=== PATIENT | female | born 1960 | race Caucasian/White ===

== ENCOUNTER 2024-01-24 12:05 | Inpatient (IN) | payer BC ==
--- NOTE | 2024-01-24 13:29 | ED ---
Neuro HPI - General Chief Complaint: Neuro Symptoms/Deficit Stated Complaint: Dizziness Time Seen by Provider: 01/24/24 12:10 Source: patient Mode of arrival: wheelchair Limitations: no limitations - History of Present Illness Is the patient presenting with stroke symptoms?: Yes Initial Comments: 63-year-old female with past medical history of CVA and no residual deficits who presents emergency department with strokelike symptoms. States she awoke around 5:30 AM without symptoms. She ended up going back to sleep and when she woke up at 8 AM, she had acute visual disturbance. States that she cannot see the left vision out of both eyes. Patient takes aspirin daily. Patient does not take Plavix. She denies any headache. No numbness, tingling or weakness in her extremities. No speech deficit. No facial droop. No other alleviating, precipitating or modifying factors - Related Data Home Medications: Home Medications Medication Instructions Recorded Confirmed Albuterol Sulfate [Albuterol 2 puff INHALATION RT-QID PRN 01/24/24 01/24/24 Sulfate Hfa] Clotrimazole [Clotrimazole AF] 1 applic TOPICAL BID 01/24/24 01/24/24 Fluticasone Propion/Salmeterol 2 puff INHALATION RT-BID 01/24/24 01/24/24 [Advair Hfa 45-21 Mcg Inhaler] Metoprolol Succinate (ER) [Toprol 25 mg PO DAILY 01/24/24 01/24/24 XL] Multivitamin Daily Patch 1 patch TRANSDERM DAILY 01/24/24 01/24/24 Previous Rx's Medication Instructions Recorded Aspirin 162 mg PO DAILY #60 tab 01/26/24 Allergies/Adverse Reactions: Allergies Allergy/AdvReac Type Severity Reaction Status Date / Time egg Allergy Swelling & Verified 01/24/24 15:59 Blisters all over amlodipine [From Norvasc] AdvReac Abdominal Verified 01/24/24 15:59 Pain & Eye Issues amoxicillin [From Augmentin] AdvReac Nausea & Verified 01/24/24 15:59 Vomiting & Diarrhea ciprofloxacin [From Cipro] AdvReac Nausea & Verified 01/24/24 15:59 Vomiting & Diarrhea clavulanic acid AdvReac Nausea & Verified 01/24/24 15:59 [From Augmentin] Vomiting & Diarrhea epinephrine AdvReac Rapid Verified 01/24/24 15:59 Heart Rate lisinopril AdvReac muscle Verified 01/24/24 15:59 atrophy losartan AdvReac muscle Verified 01/24/24 15:59 atrophy Review of Systems ROS Statement: Those systems with pertinent positive or pertinent negative responses have been documented in the HPI. ROS Other: All systems not noted in ROS Statement are negative. General Exam Limitations: no limitations General appearance: alert, in no apparent distress Head exam: Present: atraumatic, normocephalic, normal inspection Eye exam: Present: normal appearance, PERRL, other (Patient has a left hemianopsia). Absent: scleral icterus, conjunctival injection, periorbital swelling ENT exam: Present: normal exam, mucous membranes moist Neck exam: Present: normal inspection. Absent: tenderness, meningismus, lymphadenopathy Respiratory exam: Present: normal lung sounds bilaterally. Absent: respiratory distress, wheezes, rales, rhonchi, stridor Cardiovascular Exam: Present: regular rate, normal rhythm, normal heart sounds. Absent: systolic murmur, diastolic murmur, rubs, gallop, clicks GI/Abdominal exam: Present: soft, normal bowel sounds. Absent: distended, tenderness, guarding, rebound, rigid Extremities exam: Present: normal inspection, full ROM, normal capillary refill. Absent: tenderness, pedal edema, joint swelling, calf tenderness Back exam: Present: normal inspection Neurological exam: Present: alert, oriented X3, CN II-XII intact Psychiatric exam: Present: normal affect, normal mood Skin exam: Present: warm, dry, intact, normal color. Absent: rash Stroke MDM - Lab Data Result diagrams: 01/26/24 10:24 01/26/24 10:24 Lab Results 01/24/24 01/24/24 01/24/24 Range/Units 13:49 13:49 13:49 WBC 7.6 (3.8-10.6) k/uL RBC 5.00 (3.80-5.40) m/uL Hgb 13.7 (11.4-16.0) gm/dL Hct 44.0 (34.0-46.0) % MCV 88.0 (80.0-100.0) fL MCH 27.3 (25.0-35.0) pg MCHC 31.0 (31.0-37.0) g/dL RDW 14.5 (11.5-15.5) % Plt Count 298 (150-450) k/uL MPV 8.0 Neutrophils % 70 % Lymphocytes % 21 % Monocytes % 6 % Eosinophils % 2 % Basophils % 1 % Neutrophils # 5.3 (1.3-7.7) k/uL Lymphocytes # 1.6 (1.0-4.8) k/uL Monocytes # 0.4 (0-1.0) k/uL Eosinophils # 0.2 (0-0.7) k/uL Basophils # 0.1 (0-0.2) k/uL PT 10.9 (10.0-12.5) sec INR 1.0 (<1.2) APTT 25.5 (22.0-30.0) sec Sodium 142 (137-145) mmol/L Potassium 4.9 (3.5-5.1) mmol/L Chloride 108 H (98-107) mmol/L Carbon Dioxide 26 (22-30) mmol/L Anion Gap 8 mmol/L BUN 13 (7-17) mg/dL Creatinine 0.59 (0.52-1.04) mg/dL Est GFR (CKD-EPI)AfAm >90 (>60 ml/min/1.73 sqM) Est GFR (CKD-EPI)NonAf >90 (>60 ml/min/1.73 sqM) Glucose 99 (74-99) mg/dL Calcium 10.0 (8.4-10.2) mg/dL Total Bilirubin 0.6 (0.2-1.3) mg/dL AST 23 (14-36) U/L ALT 15 (4-34) U/L Alkaline Phosphatase 77 (38-126) U/L Creatine Kinase 60 (30-135) U/L Troponin I (0.000-0.034) ng/mL Total Protein 7.4 (6.3-8.2) g/dL Albumin 4.3 (3.5-5.0) g/dL 01/24/24 Range/Units 13:49 WBC (3.8-10.6) k/uL RBC (3.80-5.40) m/uL Hgb (11.4-16.0) gm/dL Hct (34.0-46.0) % MCV (80.0-100.0) fL MCH (25.0-35.0) pg MCHC (31.0-37.0) g/dL RDW (11.5-15.5) % Plt Count (150-450) k/uL MPV Neutrophils % % Lymphocytes % % Monocytes % % Eosinophils % % Basophils % % Neutrophils # (1.3-7.7) k/uL Lymphocytes # (1.0-4.8) k/uL Monocytes # (0-1.0) k/uL Eosinophils # (0-0.7) k/uL Basophils # (0-0.2) k/uL PT (10.0-12.5) sec INR (<1.2) APTT (22.0-30.0) sec Sodium (137-145) mmol/L Potassium (3.5-5.1) mmol/L Chloride (98-107) mmol/L Carbon Dioxide (22-30) mmol/L Anion Gap mmol/L BUN (7-17) mg/dL Creatinine (0.52-1.04) mg/dL Est GFR (CKD-EPI)AfAm (>60 ml/min/1.73 sqM) Est GFR (CKD-EPI)NonAf (>60 ml/min/1.73 sqM) Glucose (74-99) mg/dL Calcium (8.4-10.2) mg/dL Total Bilirubin (0.2-1.3) mg/dL AST (14-36) U/L ALT (4-34) U/L Alkaline Phosphatase (38-126) U/L Creatine Kinase (30-135) U/L Troponin I <0.012 (0.000-0.034) ng/mL Total Protein (6.3-8.2) g/dL Albumin (3.5-5.0) g/dL - Medical Decision Making Was pt. sent in by a medical professional or institution (, PA, CHIEF DEPUTY CORONER, urgent care, hospital, or long term...) When possible be specific @ -No Did you speak to anyone other than the patient for history (EMS, parent, family, police, friend...)? What history was obtained from this source @ -No Did you review nursing and triage notes (agree or disagree)? Why? @ -I reviewed and agree with nursing and triage notes Were old charts reviewed (outside hosp., previous admission, EMS record, old EKG, old radiological studies, urgent care reports/EKG's, long term records)? Report findings @ -No old charts were reviewed Differential Diagnosis (chest pain, altered mental status, abdominal pain women, abdominal pain men, vaginal bleeding, weakness, fever, dyspnea, syncope, headache, dizziness, GI bleed, back pain, seizure, CVA, palpatations, mental health, musculoskeletal)? @ -Differential CVA Ischemic stroke, hemorrhagic stroke, brain tumor, atypical migraine, Wernicke's encephalopathy, seizure, multiple sclerosis, meningitis, encephalitis, hypoglycemia, Guillain-Palafox, electrolytes disturbance, myasthenia gravis.... This is not meant to be an all-inclusive list EKG interpreted by me (3pts min.). @ -Yes and demonstrates sinus bradycardia with a rate of 57. FL interval 159. QRS 100. QTc of 408. No acute ST segment elevations or depressions X-rays interpreted by me (1pt min.). @ -yes and demonstrates no acute positive CT interpreted by me (1pt min.). @ -Yes and demonstrates no acute process U/S interpreted by me (1pt. min.). @ -None done What testing was considered but not performed or refused? (CT, X-rays, U/S, labs)? Why? @ -None What meds were considered but not given or refused? Why? @ -Thrombolytics not given as patient was outside window. Plavix not given as patient refuses Did you discuss the management of the patient with other professionals (professionals i.e. , PA, CHIEF DEPUTY CORONER, lab, RT, psych nurse, social service agency director, client executive, teacher, welfare officer, case management director)? Give summary @ -Spoke with the neurointensivist in regards to the patient's symptoms Was smoking cessation discussed for >3mins.? @ -No Was critical care preformed (if so, how long)? @ -Yes, 35 minutes for code stroke activation Were there social determinants of health that impacted care today? How? (Homelessness, low income, unemployed, alcoholism, drug addiction, transportation, low edu. Level, literacy, decrease access to med. care, care home, rehab)? @ -No Was there de-escalation of care discussed even if they declined (Discuss DNR or withdrawal of care, Hospice)? DNR status @ -No What co-morbidities impacted this encounter? (DM, HTN, Smoking, COPD, CAD, Cancer, CVA, ARF, Chemo, Hep., AIDS, mental health diagnosis, sleep apnea, morbid obesity)? @ -History of CVA Was patient admitted / discharged? Hospital course, mention meds given and route, prescriptions, significant lab abnormalities, going to OR and other pertinent info. @ -Upon arrival patient was seen and evaluated in the [facility]. NIH is assessed and is 2. Because this patient is moved to trauma bay. Code stroke was activated. Last known well was 5:30 AM. Patient outside the window for thrombolytics. CT and CTA are performed. No acute findings. Patient requires admission to the hospital for neurologic workup including MRI. Patient was agreeable to this. She is admitted to [facility] who I did speak with and was agreeable to the admission. I was going to administer Plavix however the patient refused. She was given an aspirin. Neurology will be consulted Undiagnosed new problem with uncertain prognosis? @ -Yes Drug Therapy requiring intensive monitoring for toxicity (Heparin, Nitro, Insulin, Cardizem)? @ -No Were any procedures done? @ -No Diagnosis/symptom? @ -Acute left homonymous hemianopsia, acute CVA Acute, or Chronic, or Acute on Chronic? @ -Acute Uncomplicated (without systemic symptoms) or Complicated (systemic symptoms)? @ -Complicated Side effects of treatment? @ -No Exacerbation, Progression, or Severe Exacerbation? @ -No Poses a threat to life or bodily function? How? (Chest pain, [place], [place], pneumonia, PE, COPD, DKA, ARF, appy, cholecystitis, CVA, Diverticulitis, Homicidal, Suicidal, threat to staff... and all critical care pts) @ -Yes as patient has likely suffered a CVA Past Medical History Past Medical History: Asthma, COPD, GERD/Reflux, Hyperlipidemia, Hypertension, Mitral Valve Prolapse (MVP) History of Any Multi-Drug Resistant Organisms: None Reported Past Surgical History: Section, Tonsillectomy Past Psychological History: No Psychological Hx Reported Smoking Status: Current every day smoker Past Alcohol Use History: Occasional Past Drug Use History: None Reported - Past Family History Father Family Medical History: Chest Pain / Angina, Myocardial Infarction ([place]) Mother Additional Family Medical History / Comment(s): from ulcerative colitis Course Vital Signs 01/24/24 01/24/24 01/24/24 12:06 15:18 15:52 Temperature 97.8 F Pulse Rate 71 67 56 L Respiratory 18 20 20 Rate Blood Pressure 190/93 185/97 199/95 O2 Sat by Pulse 99 97 97 Oximetry 01/24/24 01/24/24 01/24/24 17:11 17:55 18:15 Temperature Pulse Rate 60 68 72 Respiratory 18 18 18 Rate Blood Pressure 207/106 222/112 209/118 O2 Sat by Pulse 97 97 100 Oximetry 01/24/24 01/24/24 01/24/24 18:45 19:01 19:18 Temperature Pulse Rate 59 L 68 58 L Respiratory 20 18 18 Rate Blood Pressure 226/117 214/101 204/103 O2 Sat by Pulse 96 96 96 Oximetry 01/24/24 01/24/24 01/24/24 20:13 22:13 22:57 Temperature Pulse Rate 92 101 H 95 Respiratory 18 18 18 Rate Blood Pressure 195/123 180/111 O2 Sat by Pulse 98 96 96 Oximetry 01/25/24 01/25/24 01/25/24 02:37 06:31 07:51 Temperature Pulse Rate 89 87 Respiratory 18 18 Rate Blood Pressure 155/116 149/94 O2 Sat by Pulse 96 96 97 Oximetry 01/25/24 01/25/24 01/25/24 09:36 10:00 11:00 Temperature Pulse Rate 78 78 76 Respiratory 18 18 16 Rate Blood Pressure 147/107 144/99 142/100 O2 Sat by Pulse 99 99 98 Oximetry 01/25/24 01/25/24 01/25/24 12:00 13:00 14:00 Temperature Pulse Rate 82 74 70 Respiratory 16 18 18 Rate Blood Pressure 148/103 140/76 160/85 O2 Sat by Pulse 99 98 86 L Oximetry - Reevaluation(s) Reevaluation #1: Spoke with Dr. Corona. Aware of aneurysm findings. States that he will follow- up with the patient in 4 to 6 weeks for angiogram. Patient may be admitted to our facility at this time 01/24/24 15:28 Disposition Clinical Impression: Cerebrovascular accident (CVA), Hemianopia, homonymous, left Disposition: ADMITTED IP TO THIS [facility] Condition: Stable Is patient prescribed a controlled substance at d/c from ED?: No Time of Disposition: 15:25 Decision to Admit Reason: Admit from EC Decision Date: 01/24/24 Decision Time: 15:25
--- NOTE | 2024-01-24 13:50 | CT ---
EXAMINATION TYPE: CT brain wo con DATE OF EXAM: 01/24/2024 COMPARISON: None HISTORY: 63-year-old female Neuro deficits, LT side that has resolved. Previous stroke 2015 TECHNIQUE: Examination was done in axial plane without intravenous contrast. Coronal and sagittal r econstructions performed. CT DLP: 1099.6 mGycm Automated exposure control for dose reduction was used. FINDINGS: There is no evidence of acute intracranial hemorrhage, acute ischemic changes, mass, mass-effect, or extra-axial fluid collection. There is no effacement of cerebral sulci or basal subarachnoid cister ns. There is no hydrocephalus. There is no midline shift. Mendez-white matter distinction is preserv ed. Moderate patchy and confluent white matter hypodensities in both cerebral hemispheres. Mild to modera te atherosclerotic calcifications in the carotid siphons. Paranasal sinuses and mastoid air cells well pneumatized. Orbital globes are intact. IMPRESSION: Moderate patchy and confluent burden of chronic small vessel ischemic disease. No acute intracranial abnormality seen.
[2024-01-24 13:57] LABS: Basophils # (A) 0.1 k/uL (0-0.2); Basophils % (A) 1 %; Eosinophils # (A) 0.2 k/uL (0-0.7); Eosinophils % (A) 2 %; HGB 13.7 gm/dL (11.4-16.0); Lymphocytes # (A) 1.6 k/uL (1.0-4.8); Lymphocytes % (A) 21 %; MCH 27.3 pg (25.0-35.0); Monocytes # (A) 0.4 k/uL (0-1.0); Monocytes % (A) 6 %; Neutrophils # (A) 5.3 k/uL (1.3-7.7); Neutrophils % (A) 70 %; Platelet Count 298 k/uL (150-450); RDW 14.5 % (11.5-15.5); WBC 7.6 k/uL (3.8-10.6)
--- NOTE | 2024-01-24 14:00 | XR ---
EXAMINATION TYPE: XR chest 2V DATE OF EXAM: 01/24/2024 COMPARISON: None INDICATION: Altered mental status TECHNIQUE: Frontal and lateral views of the chest are obtained. FINDINGS: The heart size is normal. The pulmonary vasculature is normal. The lungs are clear. IMPRESSION: 1. No acute pulmonary process.
[2024-01-24 14:10] LABS: ALT 15 U/L (4-34); AST 23 U/L (14-36); African American GFR (CKD) >90 (>60 ml/min/1.73 sqM); Albumin 4.3 g/dL (3.5-5.0); Alkaline Phosphatase 77 U/L (38-126); Anion Gap 8 mmol/L; Blood Urea Nitrogen 13 mg/dL (7-17); Carbon Dioxide 26 mmol/L (22-30); Chloride 108 mmol/L (98-107); Creatine Kinase 60 U/L (30-135); Glucose 99 mg/dL (74-99); Non-African American GFR(CKD) >90 (>60 ml/min/1.73 sqM); Potassium 4.9 mmol/L (3.5-5.1); Sodium 142 mmol/L (137-145); Total Bilirubin 0.6 mg/dL (0.2-1.3); Total Protein 7.4 g/dL (6.3-8.2)
--- NOTE | 2024-01-24 14:13 | CT ---
EXAMINATION TYPE: CT angio head neck DATE OF EXAM: 01/24/2024 COMPARISON: Brain same day HISTORY: 63-year-old female neurologic deficit, acute, stroke suspected TECHNIQUE: Contiguous axial scanning of the head and neck performed with IV Contrast, patient injecte d with 60 mL of Isovue 370. Coronal and sagittal reconstructions performed. 3-D reconstructions gener ated on a dedicated independent workstation. CT DLP: 375 mGycm Automated exposure control for dose reduction was used. FINDINGS: NECK: Bovine configuration to the aortic arch. The vertebral arteries are codominant and patent throughout the course. The bilateral common and bilateral internal carotid arteries are patent. There is minimal atheroscler otic calcification at the proximal left ICA. NASCET criteria was utilized. HEAD: The bilateral vertebral and basilar arteries are patent though there is mild smooth stenosis of the d istal third basilar artery. There is persistent origin left [employer]LLOCK [employer]ER and posterior circulation otherwise patent. Atherosclerotic change contributes to mild to moderate stenosis supraclinoid right ICA, thin cut axia l image 160 series 409 and moderate focal stenosis supraclinoid left ICA, axial image 154. There is some fusiform aneurysm at the communicating segment of the left ICA up to 6 mm caliber. Remainder of the anterior circulation is patent. Dural venous sinuses are patent. No aneurysmal change is otherwise identified. IMPRESSION: NECK: 1. MINIMAL ATHEROSCLEROTIC CHANGE AT THE LEFT CAROTID BIFURCATION. OTHERWISE, WIDELY PATENT VERTEBRAL AND CAROTID ARTERIES OF THE NECK. HEAD: 2. ATHEROSCLEROTIC CHANGE WITHIN THE CAROTID SIPHONS. THIS CONTRIBUTES TO MODERATE FOCAL STENOSIS SUP RACLINOID LEFT ICA. 3. 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 Possible poststenotic dilatation. 4. Otherwise, no large vessel intracranial arterial occlusion or other significant stenosis is seen. 5. Anatomic variation with persistent origin left [employer]LLOCK [employer]ER.
[2024-01-24 14:23] LABS: Partial Thromboplastin Time 25.5 sec (22.0-30.0); Prothrombin Time 10.9 sec (10.0-12.5)
[2024-01-24] MEDS: ATORVASTATIN 40 MG TAB PO SCH (17:03)
[2024-01-24] MEDS: ASPIRIN 325 MG TAB PO STA (17:03)
[2024-01-24] MEDS: ASPIRIN 81 MG PO STA (18:11)
[2024-01-24] MEDS: hydrALAZINE HCL 20 MG/ML 1 ML VIAL IVP STA (19:08)
[2024-01-24] MEDS ORDERED: ALBUTEROL NEBULIZED 2.5 MG/3 ML INHALATION PRN (19:09)
[2024-01-24] MEDS: CLOTRIMAZOLE 1% CREAM 30 GM TUBE TOPICAL SCH (23:02)
[2024-01-25] MEDS: SYMBICORT 80-4.5 MCG INHALER INHALATION SCH (01:37)
[2024-01-25] MEDS: ASPIRIN 81 MG PO SCH (08:41)
[2024-01-25] MEDS ORDERED: ASPIRIN 325 MG TAB PO SCH (09:00)
[2024-01-25] MEDS ORDERED: MULTIVITAMIN DAILY TRANSDERM SCH (09:00)
[2024-01-25] MEDS: METOPROLOL SUCCINATE (ER) 25 MG TAB.ER.24H PO SCH (10:26)
--- NOTE | 2024-01-25 10:58 | P.CNNES ---
History of Present Illness Consult date: 01/24/24 Requesting physician: Shama Nolasco Reason for Consult: acute left hemianopsia, suspected CVA History of Present Illness: Patient is a 63-year-old right-handed female came to the hospital today at 12:05 PM for acute onset of visual disturbance. Patient states that after she wakes up from sleep, she is usually groggy and takes "about 1 to 2 hours to fully wake up". She got up this morning at 9:30 AM, and was groggy as usual. However when she became fully awake, noticed that she had a dark spot in front of vision and she could not focus. Patient states that she could not see out of both eyes. Later she said that she could not see out of the right side. Patient denied any slurred speech, facial droop, any numbness or tingling or focal weakness. Her balance is fine. As a visual symptoms persisted, she decided come to the ER. Patient states that before she woke up at 9:30 AM, she had woken up prior at 5:30 AM and was out for about 1 hour at that time and was fine regarding her vision. Vital signs on arrival blood pressure 190/93, which came down to 185/97. Pulse rate 71 temperature 97.8. Blood test shows normal CBC, PT PTT, normal CMP troponin and CK. CT head revealed moderate patchy and confluent burden of chronic small vessel ischemic disease. No acute intracranial abnormality. I personally reviewed CT head and on my review, there is evidence of subacute to chronic ischemia in the right thalamus, right external capsule and the left thalamus. And definitely evidence of some small vessel disease.. EKG shows sinus bradycardia. Patient's NIH stroke scale was reported as 2. Dr. Nolasco discussed case with Dr. Corona, neurointervention, who did not recommend tPA, because last known well was 5:30 AM, and she presented at 12:05 PM. No intervention recommended. Patient states she has history of CVA in 2014 when she was living in [facility]. She at that time had symptoms of right facial numbness, diplopia, right hand numbness. The numbness lasted for 2 days but the diplopia lasted for long time. Patient states that her blood pressure medication (losartan) was making her "crippled with muscle atrophy". 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 Patient also mentions that for last 6 months she has developed "microhematuria". She has been found to have a mass on the kidney 3.1 cm. She is being worked up since last 6 months. She is following up with the urologist. She has smoked one 1 pack/day for 30 years, cut back to smoking 1 pack/week in the last 20 years. She has been smoking since age 16. She drinks alcohol very occasionally, does not use any marijuana or drug use. Patient does take aspirin 81 mg daily, compliant with it. Review of Systems As mentioned in detail in HPI, all pertinent positives and negatives. Otherwise rest of the review of systems noncontributory to the current illness. Past Medical History Past Medical History: Asthma, COPD, GERD/Reflux, Hyperlipidemia, Hypertension, Mitral Valve Prolapse (MVP) History of Any Multi-Drug Resistant Organisms: None Reported Past Surgical History: Section, Tonsillectomy Past Psychological History: No Psychological Hx Reported Smoking Status: Current every day smoker Past Alcohol Use History: Occasional Past Drug Use History: None Reported Medications and Allergies Home Medications Medication Instructions Recorded Confirmed Type Albuterol Sulfate [Albuterol 2 puff INHALATION RT-QID PRN 01/24/24 01/24/24 History Sulfate Hfa] Aspirin 81 mg PO HS 01/24/24 01/24/24 History Clotrimazole [Clotrimazole AF] 1 applic TOPICAL BID 01/24/24 01/24/24 History Fluticasone Propion/Salmeterol 2 puff INHALATION RT-BID 01/24/24 01/24/24 History [Advair Hfa 45-21 Mcg Inhaler] Metoprolol Succinate (ER) [Toprol 25 mg PO DAILY 01/24/24 01/24/24 History Xl] Multivitamin Daily Patch 1 patch TRANSDERM DAILY 01/24/24 01/24/24 History Allergies Allergy/AdvReac Type Severity Reaction Status Date / Time egg Allergy Swelling & Verified 01/24/24 15:59 Blisters all over amlodipine [From Norvasc] AdvReac Abdominal Verified 01/24/24 15:59 Pain & Eye Issues amoxicillin [From Augmentin] AdvReac Nausea & Verified 01/24/24 15:59 Vomiting & Diarrhea ciprofloxacin [From Cipro] AdvReac Nausea & Verified 04/17/24 15:59 Vomiting & Diarrhea clavulanic acid AdvReac Nausea & Verified 01/24/24 15:59 [From Augmentin] Vomiting & Diarrhea epinephrine AdvReac Rapid Verified 01/24/24 15:59 Heart Rate lisinopril AdvReac muscle Verified 01/24/24 15:59 atrophy losartan AdvReac muscle Verified 01/24/24 15:59 atrophy Physical Examination - Vital Signs Vital Signs: Vital Signs Temp Pulse Resp BP Pulse Ox 01/24/24 17:55 68 18 222/112 97 01/24/24 17:11 60 18 207/106 97 01/24/24 15:52 56 L 20 199/95 97 01/24/24 15:18 67 20 185/97 97 01/24/24 12:06 97.8 F 71 18 190/93 99 Intake and Output 01/24/24 01/24/24 01/24/24 06:59 14:59 22:59 Other: Weight 72.121 kg Patient is a late middle aged female, very pleasant in no acute distress. Patient is alert awake oriented to time place and person. Speech and language functions are normal. Patient can name and repeat very well. No aphasia or dysarthria. Attention, concentration and fund of knowledge is adequate. On cranial nerve examination, pupils are equal, round and reacting to light, visual navarro revealed some visual field deficits on the left side. On checking in the visual eye, with the right eye, she has some deficits in the left upper quadrant. With the left eye, she has left Hari vision defect. Interestingly, patient complaining of visual disturbance on the contralateral (right) side. Extraocular muscles are intact with no nystagmus. Face is symmetric, tongue protrudes to the midline. Palatal elevation and sensation normal, hearing and shoulder shrug normal, facial sensation normal. On muscle strength testing, there is no pronator drift and the strength is normal in arms and legs distally and proximally except hip flexion which is 4 bilaterally with cramps on checking. Deep tendon reflexes are asymmetric (right/left) biceps 1+/2+, brachioradialis 1+/2+, knees 2+/2+, ankles 1+/1+ and plantars downgoing bilaterally. Sensory to touch is equal with no neglect on double simultaneous stimulation. Cerebellar function showed no ataxia for [id number] testing. No dysdiadochokinesia. No ataxia for [id number] testing on either side. Tone and bulk of muscles normal. Gait deferred.. On general examination, there is no carotid bruit or murmur, S1-S2 audible. Chest is clear on consultation. Abdomen is soft nontender. No organomegaly, bowel sounds present. Peripheral pulses are present. No peripheral edema. Results - Laboratory Findings CBC and BMP: 01/24/24 13:49 01/24/24 13:49 Abnormal Lab Findings: Abnormal Labs 01/24/24 13:49 Chloride 108 H Assessment and Plan Assessment: * Probable acute ischemic stroke manifesting with left homonymous hemianopia. Apparently patient complaining of visual field deficit on the right side, but examination showing deficit on the left. * Reported, previous history of stroke in 2014 when she presented with diplopia, that has resolved. * Hypertension, uncontrolled * COPD * Hyperlipidemia * Tobacco use Plan: * Patient has developed acute left homonymous hemianopia. * MRI of the brain evaluate for acute stroke * CTA of neck showed minimal atherosclerotic change at the level of carotid bifurcation. No significant stenosis * CTA of the head revealed atherosclerotic change within the carotid siphons. This contributes to moderate focal stenosis supraclinoid left ICA. 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 Possible poststenotic dilation. Otherwise no large vessel intracranial arterial occlusion or significant stenosis. Anatomic variation with persistent origin left [employer]. * Dr. Nolasco discussed case with neurointervention Dr. Corona, who did not recommend tPA or any intervention because of last known well > 4.5 hours. Regarding aneurysm, he is recommending medical management, and follow-up in his office in 4 to 6 weeks for further management of aneurysm. No acute intervention indicated. * 2D echo rule out embolic source * Fasting lipid panel. Patient was recommended Lipitor 40 mg, but she declined. She does not take statins at home. * Hemoglobin A1c * Permissive hypertension for 24 hours. * Patient has been on aspirin 81 mg daily, compliant with the medication. With this new possible stroke, recommended to add Plavix (DAPT), but patient declined. Patient also declined taking coated full aspirin. She did agree to take 4 chewable baby aspirin's, otherwise it "tears her stomach". * Pepcid 20 mg twice daily for gastric ulcer prophylaxis. * Recommend complete tobacco cessation * DVT prophylaxis: Patient ambulatory. Patient very concerned about medications in general. * Neurology will follow. Thank you for the consult. Time with Patient: Greater than 30
[2024-01-25] MEDS: FAMOTIDINE 20 MG TAB PO SCH (11:17)
[2024-01-25 11:27] LABS: LDL Cholesterol,Calculated 153.9 mg/dL (0.0-131.0)
--- NOTE | 2024-01-25 12:14 | P.HPIM ---
History of Present Illness H&P Date: 01/25/24 History of present illness; patient 63-year-old lady with past medical history significant for COPD, hypertension presented to the ER for evaluation for visual disturbances. Patient stated that she woke up at 8 in the morning and she started noticing that she was having difficulty seeing. Patient could not see on the left side through both her eyes. There was no complaint of any weakness of any extremity. Denied any slurred speech. There is no evidence of any facial droop. No complaint of any headache. Denies any chest pain or shortness of breath. Because of the symptoms, patient became concerned and decided to come to the ER Initial lab work done in the ER showed WBC 7.6, hemoglobin 13.7, platelet count 298, sodium 142, potassium 4.9, BUN 13, creatinine 0.59, AST 23, ALT 15, EKG done in the ER showed heart rate of 57, no ST segment elevation or depression seen, no T-wave inversions seen. CT head done showed no acute intracranial process. Moderate patchy and confluent burden of chronic small vessel ischemic disease. CTA head and neck done showed minimal atherosclerotic changes at the left carotid bifurcation. Atherosclerotic changes within the carotid siphons. 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 HEENT: No recent visual problems or hearing problems. Denied any sore throat. CARDIOVASCULAR: No chest pain, orthopnea, PND, no palpitations, no syncope. PULMONARY: No shortness of breath, no cough, no hemoptysis. GASTROINTESTINAL: No diarrhea, no nausea, no vomiting, no abdominal pain. NEUROLOGICAL: As mentioned above HEMATOLOGICAL: Denies any bleeding or petechiae. GENITOURINARY: Denies any burning micturition, frequency, or urgency. MUSCULOSKELETAL/RHEUMATOLOGICAL: Denies any joint pain, swelling, or any muscle pain. ENDOCRINE: Denies any polyuria or polydipsia. The rest of the 14-point review of systems is negative. PHYSICAL EXAMINATION: GENERAL: The patient is alert and oriented x3, not in any acute distress. Well developed, well nourished. HEENT: Pupils are round and equally reacting to light. EOMI. No scleral icterus. No conjunctival pallor. Normocephalic, atraumatic. No pharyngeal erythema. No thyromegaly. CARDIOVASCULAR: S1 and S2 present. No murmurs, rubs, or gallops. PULMONARY: Chest is clear to auscultation, no wheezing or crackles. ABDOMEN: Soft, nontender, nondistended, normoactive bowel sounds. No palpable organomegaly. MUSCULOSKELETAL: No joint swelling or deformity. EXTREMITIES: No cyanosis, clubbing, or pedal edema. NEUROLOGICAL: Gross neurological examination did not reveal any focal deficits. SKIN: No rashes. 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 Continue same treatment. Continue with symptomatic treatment. Resume home medication. Monitor labs and vitals. DVT and GI prophylaxis. Further recommendations as per clinical course of the patient Dictation was produced using Rapid [employer] Screening dictation software. please excuse any grammatical, word or spelling errors. Past Medical History Past Medical History: Asthma, COPD, GERD/Reflux, Hyperlipidemia, Hypertension, Mitral Valve Prolapse (MVP) History of Any Multi-Drug Resistant Organisms: None Reported Past Surgical History: Section, Tonsillectomy Past Psychological History: No Psychological Hx Reported Smoking Status: Current every day smoker Past Alcohol Use History: Occasional Past Drug Use History: None Reported Medications and Allergies Home Medications Medication Instructions Recorded Confirmed Type Albuterol Sulfate [Albuterol 2 puff INHALATION RT-QID PRN 01/24/24 01/24/24 History Sulfate Hfa] Aspirin 81 mg PO HS 01/24/24 01/24/24 History Clotrimazole [Clotrimazole AF] 1 applic TOPICAL BID 01/24/24 01/24/24 History Fluticasone Propion/Salmeterol 2 puff INHALATION RT-BID 01/24/24 01/24/24 History [Advair Hfa 45-21 Mcg Inhaler] Metoprolol Succinate (ER) [Toprol 25 mg PO DAILY 01/24/24 01/24/24 History Xl] Multivitamin Daily Patch 1 patch TRANSDERM DAILY 01/24/24 01/24/24 History Allergies Allergy/AdvReac Type Severity Reaction Status Date / Time egg Allergy Swelling & Verified 01/24/24 15:59 Blisters all over amlodipine [From Norvasc] AdvReac Abdominal Verified 01/24/24 15:59 Pain & Eye Issues amoxicillin [From Augmentin] AdvReac Nausea & Verified 01/24/24 15:59 Vomiting & Diarrhea ciprofloxacin [From Cipro] AdvReac Nausea & Verified 01/24/24 15:59 Vomiting & Diarrhea clavulanic acid AdvReac Nausea & Verified 01/24/24 15:59 [From Augmentin] Vomiting & Diarrhea epinephrine AdvReac Rapid Verified 01/24/24 15:59 Heart Rate lisinopril AdvReac muscle Verified 01/24/24 15:59 atrophy losartan AdvReac muscle Verified 01/24/24 15:59 atrophy Physical Exam Vitals: Vital Signs Temp Pulse Resp BP Pulse Ox 01/25/24 07:51 97 01/25/24 06:31 87 18 149/94 96 01/25/24 02:37 89 18 155/116 96 01/24/24 22:57 95 18 180/111 96 01/24/24 22:13 101 H 18 96 01/24/24 20:13 92 18 195/123 98 01/24/24 19:18 58 L 18 204/103 96 01/24/24 19:01 68 18 214/101 96 01/24/24 18:45 59 L 20 226/117 96 01/24/24 18:15 72 18 209/118 100 01/24/24 17:55 68 18 222/112 97 01/24/24 17:11 60 18 207/106 97 01/24/24 15:52 56 L 20 199/95 97 01/24/24 15:18 67 20 185/97 97 01/24/24 12:06 97.8 F 71 18 190/93 99 Results CBC & Chem 7: 01/24/24 13:49 01/24/24 13:49 Labs: Abnormal Lab Results - Last 24 Hours (Table) 01/24/24 Range/Units 13:49 Chloride 108 H (98-107) mmol/L
--- NOTE | 2024-01-25 15:57 | MR ---
EXAMINATION TYPE: MR brain wo con DATE OF EXAM: 01/25/2024 3:41 PM CLINICAL INDICATION:Female, 63 years old with history of CVA; PHH, Acute left hemianopsia. COMPARISON: 01/24/2024. TECHNIQUE: Multi planar, multi sequence imaging was performed through the brain including: T1, T2, In version recovery, Diffusion weighted imaging, and gradient echo imaging. No gadolinium was given. FINDINGS: Restricted diffusion seen within the right periventricular white matter The guerrier-white junctions, ventricular system, basal cisterns appear unremarkable. Scattered foci of high T2 signal intensity are seen within the periventricular white matter. Midline structures show n o abnormality. Scattered foci blooming artifact throughout the cerebrum. The bone marrow signal is within normal limits. Paranasal sinuses and mastoid air cells: No significant paranasal sinus disease. Visualized orbits: Orbital contents are intact. IMPRESSION: 1. Acute/subacute CVA involving the right. Periventricular white matter 2. Nonspecific white matter changes, likely secondary to small vessel ischemic disease. 3. Scattered foci of artifact throughout the cerebrum and cerebellum correlate for microhemorrhage ve rsus cerebral amyloid angiopathy.
--- NOTE | 2024-01-25 17:26 | CA ---
Transthoracic Echo Report Name: Jenny Lawson Age: 63 Gender: F : 1960 Exam Date: 01/25/2024 12:36 Exam Location: [facility] Ht (in): 63 Wt (lb): 159 Ordering Physician: Low Larose MD Attending/Referring Phys: Sr. Unix System Administrator Estefanía Fang RDCS Procedure CPT: Indications: CVA Cardiac Hx: Technical Quality: Contrast 1: Total Dose (mL): Contrast 2: Total Dose (mL): MEASUREMENTS (Male / Female) Normal Values 2D ECHO LV Diastolic Diameter PLAX 4.6 cm 4.2 - 5.9 / 3.9 - 5.3 cm LV Systolic Diameter PLAX 2.9 cm IVS Diastolic Thickness 1.0 cm 0.6 - 1.0 / 0.6 - 0.9 cm LVPW Diastolic Thickness 1.2 cm 0.6 - 1.0 / 0.6 - 0.9 cm LV Relative Wall Thickness 0.5 RV Internal Dim ED PLAX 2.4 cm LA Systolic Diameter LX 3.5 cm 3.0 - 4.0 / 2.7 - 3.8 cm LV Diastolic Volume MOD BP 64.3 cm??? 67 - 155 / 56 - 104 cm??? LV Systolic Volume MOD BP 30.0 cm??? 22 - 58 / 19 - 49 cm??? LV Ejection Fraction MOD BP 53.4 % >= 55 % LV Cardiac Index MOD BP 1155.8 cm???/min???m??? LV Diastolic Volume MOD 4C 66.7 cm??? LV Systolic Volume MOD 4C 19.6 cm??? LV Ejection Fraction MOD 4C 70.6 % LV Cardiac Index MOD 4C 1585.6 cm???/min???m??? LV Diastolic Length 4C 7.8 cm LV Systolic Length 4C 3.3 cm LV Diastolic Volume MOD 2C 60.2 cm??? LV Systolic Volume MOD 2C 22.6 cm??? LV Ejection Fraction MOD 2C 62.4 % LV Cardiac Index MOD 2C 1263.3 cm???/min???m??? LV Diastolic Length 2C 7.6 cm LV Systolic Length 2C 6.9 cm M-MODE Aortic Root Diameter MM 3.5 cm LA Systolic Diameter MM 3.4 cm LA Ao Ratio MM 1.0 DOPPLER Mitral E Point Velocity 45.4 cm/s Mitral A Point Velocity 96.3 cm/s Mitral E to A Ratio 0.5 MV Deceleration Time 351.3 ms MV E' Velocity 8.0 cm/s Mitral E to MV E' Ratio 5.7 TR Peak Velocity 223.9 cm/s TR Peak Gradient 20.1 mmHg Right Ventricular Systolic Press 25.1 mmHg FINDINGS Left Ventricle Left ventricular ejection fraction is estimated at 55-60 %. Mildly increased septal wall thickness. Mildly increased posterior wall thickness. No obvious regional wall motion abnormalities. Right Ventricle Normal right ventricular size and function. Right ventricular systolic pressure within normal limits. Right Atrium Normal right atrial size. Left Atrium Normal left atrial size. Mitral Valve Structurally normal mitral valve. Trace mitral regurgitation. Aortic Valve Trileaflet aortic valve. No aortic valve stenosis or regurgitation. Tricuspid Valve Structurally normal tricuspid valve. Trace tricuspid regurgitation. Pulmonic Valve Structurally normal pulmonic valve. Trace pulmonic regurgitation. Pericardium No pericardial or pleural effusion. Aorta Normal size aortic root and proximal ascending aorta. CONCLUSIONS Normal LV function Previewed by: Dr. Herminio Greenberg MD (Electronically Signed) Final Date: 25 January 2024 17:26
[2024-01-26 07:41] VITALS: PULSE 71
[2024-01-26] MEDS: NYSTATIN 100,000 UNIT/GM POWD 15 GM TOPICAL PRN (08:47)
[2024-01-26 10:43] VITALS: RESP 16
[2024-01-26 10:55] LABS: Basophils # (A) 0.1 k/uL (0-0.2); Basophils % (A) 1 %; Eosinophils # (A) 0.2 k/uL (0-0.7); Eosinophils % (A) 2 %; HCT 45.4 % (34.0-46.0); HGB 13.8 gm/dL (11.4-16.0); Hypochromasia Slight; Lymphocytes # (A) 1.8 k/uL (1.0-4.8); Lymphocytes % (A) 18 %; MCHC 30.3 g/dL (31.0-37.0); MCV 88.8 fL (80.0-100.0); Mean Platelet Volume 7.8; Monocytes # (A) 0.7 k/uL (0-1.0); Monocytes % (A) 7 %; Neutrophils # (A) 6.8 k/uL (1.3-7.7); Neutrophils % (A) 71 %; Platelet Count 324 k/uL (150-450); RBC 5.11 m/uL (3.80-5.40); RDW 14.7 % (11.5-15.5); WBC 9.7 k/uL (3.8-10.6)
[2024-01-26 11:15] LABS: ALT 18 U/L (4-34); AST 26 U/L (14-36); African American GFR (CKD) >90 (>60 ml/min/1.73 sqM); Albumin 4.2 g/dL (3.5-5.0); Alkaline Phosphatase 84 U/L (38-126); Anion Gap 11 mmol/L; Blood Urea Nitrogen 23 mg/dL (7-17); Calcium 9.9 mg/dL (8.4-10.2); Carbon Dioxide 25 mmol/L (22-30); Chloride 104 mmol/L (98-107); Glucose 101 mg/dL (74-99); Non-African American GFR(CKD) 82 (>60 ml/min/1.73 sqM); Potassium 4.3 mmol/L (3.5-5.1); Sodium 140 mmol/L (137-145); Total Bilirubin 0.7 mg/dL (0.2-1.3); Total Protein 7.2 g/dL (6.3-8.2)
--- NOTE | 2024-01-26 11:42 | P.PN ---
Subjective Progress Note Date: 01/25/24 Patient was seen for a follow-up. Patient is sitting comfortably in the recliner. Patient was in the bathroom, walked to the recliner very well. No balance issues. She believes her vision is much better. No new focal symptoms. Objective - Vital Signs Vital signs: Vital Signs Temp 97.8 F 01/24/24 12:06 Pulse 70 01/25/24 14:00 Resp 18 01/25/24 14:00 BP 160/85 01/25/24 14:00 Pulse Ox 86 L 01/25/24 14:00 FiO2 Intake & Output 01/24/24 01/25/24 01/25/24 18:59 06:59 18:59 Weight 72.121 kg - Exam Patient's mental status, speech and language functions are normal. Visual navarro appears full on confrontation today. Rest of the examination is nonfocal. - Labs CBC & Chem 7: 01/26/24 10:24 01/26/24 10:24 Labs: Abnormal Lab Results - Last 24 Hours (Table) 01/25/24 01/25/24 Range/Units 07:52 07:52 Hemoglobin A1c 6.1 H (<=6.0) % Triglycerides 179.00 H (0.00-149.00) mg/dL Cholesterol 249.00 H (0.00-200.00) mg/dL LDL Cholesterol, Calc 153.9 H (0.0-131.0) mg/dL Assessment and Plan Assessment: * Acute ischemic stroke involving the right periventricular white matter, manifesting with left homonymous hemianopia. * Reported, previous history of stroke in 2014 when she presented with diplopia, that has resolved. 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 Possible poststenotic dilation. * Hypertension, uncontrolled * COPD * Hyperlipidemia * Tobacco use Plan: * Patient is doing much better. Visual field deficit seems to have resolved on confrontation. May need more thorough testing. * MRI of the brain confirmed acute/subacute CVA involving the right periventricular white matter. Nonspecific white matter changes, likely secondary to small vessel ischemic disease. Scattered foci of artifact throughout the cerebrum and cerebellum correlate for microhemorrhage versus cerebral amyloid angiopathy. I personally reviewed MRI, agree with the findings. There is evidence of an acute stroke which is in the optic pathwa ys. Possible small vessel disease. * CTA of neck showed minimal atherosclerotic change at the level of carotid bifurcation. No significant stenosis * CTA of the head revealed atherosclerotic change within the carotid siphons. This contributes to moderate focal stenosis supraclinoid left ICA. 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 Possible poststenotic dilation. Otherwise no large vessel intracranial arterial occlusion or significant stenosis. Anatomic variation with persistent origin left [employer]. * Dr. Nolasco discussed case with neurointervention Dr. Corona, who did not recommend tPA or any intervention because of last known well > 4.5 hours. Regarding aneurysm, he is recommending medical management, and follow-up in hi s office in 4 to 6 weeks for further management of aneurysm. No acute intervention indicated. * We will have patient follow-up with Dr. Corona * 2D echo revealed normal left ventricular systolic function with EF 55 to 60%. Mildly increased septal wall thickness. No obvious regional wall motion abno rmalities. Normal left atrial and right atrial size. No valvular abnormalities. * Fasting lipid panel cholesterol 249, LDL 153.9, HDL 59 and triglycerides 179. Patient was recommended Lipitor 40 mg, but she declined. Patient states that she will try diet and exercise. She was recommended to have follow-up lipid panel in 3 months. If still abnormal, then she should definitely go on statins. * Hemoglobin A1c 6.1 suggestive of prediabetes. * Permissive hypertension for 24 hours. * Patient has been on aspirin 81 mg daily, compliant with the medication. With this new possible stroke, recommended to add Plavix (DAPT), but patient declined. Patient agreed to just increasing the dose of aspirin 81 mg twice daily. Patient has microhemorrhages noted on MRI, therefore would also avoid DAPT. * Patient just needs to aggressive control stroke risk factors including hyperli pidemia, tobacco cessation and blood pressure control. Also healthy lifestyles for prediabetes. * Pepcid 20 mg twice daily for gastric ulcer prophylaxis. * Recommend complete tobacco cessation * Neurologically clear for discharge.
--- NOTE | 2024-01-26 13:06 | P.DS ---
Providers Date of admission: 01/24/24 15:32 Expected date of discharge: 01/26/24 Attending physician: Kevin Wall Consults: 01/24/24 15:30 Consult Physician Urgent Consulting Provider: Beverly Reid Consult Reason/Comments: acute left hemianopsia, suspected CVA Do you want consulting provider notified?: Already Contacted Primary care physician: 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 Patient stated that she woke up at 8 in the morning and she started noticing that she was having difficulty seeing. Patient could not see on the left side through both her eyes. There was no complaint of any weakness of any extremity. Denied any slurred speech. There is no evidence of any facial droop. No complaint of any headache. Denies any chest pain or shortness of breath. Because of the symptoms, patient became concerned and decided to come to the ER Initial lab work done in the ER showed WBC 7.6, hemoglobin 13.7, platelet count 298, sodium 142, potassium 4.9, BUN 13, creatinine 0.59, AST 23, ALT 15, EKG done in the ER showed heart rate of 57, no ST segment elevation or depression seen, no T-wave inversions seen. CT head done showed no acute intracranial process. Moderate patchy and confluent burden of chronic small vessel ischemic disease. CTA head and neck done showed minimal atherosclerotic changes at the left carotid bifurcation. Atherosclerotic changes within the carotid siphons. 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 Patient seen and examined. 2D echo done showed normal LV function, no regional wall motion normalities. MRI brain done showed acute/subacute CVA involving the right periventricular white matter. Neurology discussed with patient with the need for her to be on aspirin plus Plavix and statins. Patient is not very keen to take any statins, wants to try dietary modifications first. Patient also refused to take Plavix. Patient did agree to take aspirin 162 mg daily. Being discharged in stable Condition PHYSICAL EXAMINATION: GENERAL: The patient is alert and oriented x3, not in any acute distress. Well developed, well nourished. HEENT: Pupils are round and equally reacting to light. EOMI. No scleral icterus. No conjunctival pallor. Normocephalic, atraumatic. No pharyngeal erythema. No thyromegaly. CARDIOVASCULAR: S1 and S2 present. No murmurs, rubs, or gallops. PULMONARY: Chest is clear to auscultation, no wheezing or crackles. ABDOMEN: Soft, nontender, nondistended, normoactive bowel sounds. No palpable organomegaly. MUSCULOSKELETAL: No joint swelling or deformity. EXTREMITIES: No cyanosis, clubbing, or pedal edema. NEUROLOGICAL: Gross neurological examination did not reveal any focal deficits. SKIN: No rashes. Dictation was produced using [employer] dictation software. please excuse any grammatical, word or spelling errors. Patient Condition at Discharge: Stable Plan - Discharge Summary Discharge Rx Participant: No New Discharge Prescriptions: New Aspirin 162 mg PO DAILY #60 tab Continue Fluticasone Propion/Salmeterol [Advair Hfa 45-21 Mcg Inhaler] 2 puff INHALATION RT-BID Multivitamin Daily Patch 1 patch TRANSDERM DAILY Albuterol Sulfate [Albuterol Sulfate Hfa] 2 puff INHALATION RT-QID PRN PRN Reason: Shortness Of Breath Metoprolol Succinate (ER) [Toprol XL] 25 mg PO DAILY Clotrimazole [Clotrimazole AF] 1 applic TOPICAL BID Discontinued Aspirin 81 mg PO HS Discharge Medication List Albuterol Sulfate [Albuterol Sulfate Hfa] 2 puff INHALATION RT-QID PRN 01/24/24 [History] Clotrimazole [Clotrimazole AF] 1 applic TOPICAL BID 01/24/24 [History] Fluticasone Propion/Salmeterol [Advair Hfa 45-21 Mcg Inhaler] 2 puff INHALATION RT-BID 01/24/24 [History] Metoprolol Succinate (ER) [Toprol XL] 25 mg PO DAILY 01/24/24 [History] Multivitamin Daily Patch 1 patch TRANSDERM DAILY 01/24/24 [History] Aspirin 162 mg PO DAILY #60 tab 01/26/24 [Rx] Follow up Appointment(s)/Referral(s): Yosvany Nguyen DO [Primary Care Provider] - 1-2 days Rodolfo Corona MD [STAFF PHYSICIAN] - 1 Week (CTA of the head revealed atherosclerotic change within the carotid siphons. This contributes to moderate focal stenosis supraclinoid left ICA. 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 Possible poststenotic dilation. Otherwise no large vessel intracranial arterial occlusion or significant stenosis. Evaluate for aneurysm.) Willian Romo MD [STAFF PHYSICIAN] - 1 Week Discharge Disposition: HOME SELF-CARE
[2024-01-26 13:38] VITALS: BP 147/70; TEMP 98
== END 2024-01-26 13:36 | disposition home or self-care (01) | DRG 299 ==
LOC: EC 12:05 → 3SCARD 15:32
PROVIDERS: ADMIT Hospitalist; ATTEND Hospitalist
DX: I72.0 Aneurysm of carotid artery (principal); I61.8 Other nontraumatic intracerebral hemorrhage; I63.232 Cerebral infarction due to unspecified occlusion or stenosis of left carotid arteries; H53.462 Homonymous bilateral field defects, left side; J44.9 Chronic obstructive pulmonary disease, unspecified; I34.1 Nonrheumatic mitral (valve) prolapse; I10 Essential (primary) hypertension; H53.2 Diplopia; I25.10 Atherosclerotic heart disease of native coronary artery without angina pectoris; E78.5 Hyperlipidemia, unspecified; F17.210 Nicotine dependence, cigarettes, uncomplicated; N28.89 Other specified disorders of kidney and ureter; R29.702 NIHSS score 2; Z79.82 Long term (current) use of aspirin; Z86.73 Personal history of transient ischemic attack (TIA), and cerebral infarction without residual deficits; Z79.899 Other long term (current) drug therapy; Z91.012 Allergy to eggs; Z88.8 Allergy status to other drugs, medicaments and biological substances; Z88.0 Allergy status to penicillin; R31.29 Other microscopic hematuria
CPT/HCPCS: 36415; 70450; 70496; 70498; 70551; 71046; 80053; 80061; 82550; 83036; 84484; 85025; 85610; 85730; 93005; 93306; 94640; 94760; 96374; 99291

== ENCOUNTER 2024-02-20 15:19 | Emergency (ER) | payer BC ==
[2024-02-20 16:11] LABS: Basophils # (A) 0.1 k/uL (0-0.2); Basophils % (A) 1 %; Eosinophils # (A) 0.1 k/uL (0-0.7); Eosinophils % (A) 1 %; HCT 43.7 % (34.0-46.0); HGB 13.6 gm/dL (11.4-16.0); Lymphocytes # (A) 1.7 k/uL (1.0-4.8); Lymphocytes % (A) 25 %; MCH 27.6 pg (25.0-35.0); Monocytes # (A) 0.5 k/uL (0-1.0); Monocytes % (A) 7 %; Neutrophils # (A) 4.5 k/uL (1.3-7.7); Neutrophils % (A) 65 %; Platelet Count 271 k/uL (150-450); RBC 4.91 m/uL (3.80-5.40); RDW 14.3 % (11.5-15.5); WBC 6.9 k/uL (3.8-10.6)
[2024-02-20 16:20] LABS: INR 1.1 (<1.2); Partial Thromboplastin Time 25.6 sec (22.0-30.0); Prothrombin Time 11.8 sec (10.0-12.5)
[2024-02-20 16:25] LABS: ALT 13 U/L (4-34); AST 20 U/L (14-36); African American GFR (CKD) >90 (>60 ml/min/1.73 sqM); Albumin 4.1 g/dL (3.5-5.0); Alkaline Phosphatase 72 U/L (38-126); Anion Gap 3 mmol/L; Blood Urea Nitrogen 16 mg/dL (7-17); Calcium 9.7 mg/dL (8.4-10.2); Carbon Dioxide 30 mmol/L (22-30); Chloride 108 mmol/L (98-107); Glucose 118 mg/dL (74-99); Magnesium 1.9 mg/dL (1.6-2.3); Non-African American GFR(CKD) >90 (>60 ml/min/1.73 sqM); Phosphorus 3.9 mg/dL (2.5-4.5); Potassium 4.1 mmol/L (3.5-5.1); Sodium 141 mmol/L (137-145); Total Bilirubin 0.5 mg/dL (0.2-1.3)
--- NOTE | 2024-02-20 16:40 | ED ---
Recheck HPI - General Source: patient, RN notes reviewed Mode of arrival: ambulatory Limitations: no limitations <Josefina Hansen - Last Filed: 02/20/24 19:15> <Mason Burgos - Last Filed: 02/20/24 21:12> - General Chief Complaint: Recheck/Abnormal Lab/Rx Stated Complaint: Hypertension, [place] referred Time Seen by Provider: 02/20/24 15:30 - History of Present Illness Initial Comments: This is a 63-year-old female with past medical history of hypertension and stroke since emergency department chief complaint of elevated blood pressure. States that she was referred by her primary care provider to report to the emergency department for further evaluation. She denies dizziness, lightheadedness, chest pain or pressure, palpitations, abdominal pain, changes is in vision or acute neurological deficits. She is prescribed 25 mg of metoprolol extended release which she is supposed to take daily, however patient states that she has been cutting this tablet into fourths and taking 1 of these a day due to concerns that this medication may have caused her stroke. Patient is currently being evaluated for determining etiology of stroke last month. Denies current use of blood thinners. (Josefina Hansen) - Related Data Home Medications Medication Instructions Recorded Confirmed Albuterol Sulfate [Albuterol 2 puff INHALATION RT-QID PRN 01/24/24 02/20/24 Sulfate Hfa] Clotrimazole [Clotrimazole AF] 1 applic TOPICAL BID 01/24/24 02/20/24 Fluticasone Propion/Salmeterol 2 puff INHALATION RT-BID 01/24/24 02/20/24 [Advair Hfa 45-21 Mcg Inhaler] Metoprolol Succinate (ER) [Toprol 6.25 mg PO BID 01/24/24 02/20/24 XL] Multivitamin Daily Patch 1 patch TRANSDERM DAILY 01/24/24 02/20/24 Aspirin 81 mg PO BID 02/20/24 02/20/24 Allergies Allergy/AdvReac Type Severity Reaction Status Date / Time egg Allergy Swelling & Verified 02/20/24 18:53 Blisters all over amlodipine [From Norvasc] AdvReac Abdominal Verified 02/20/24 18:53 Pain & Eye Issues amoxicillin [From Augmentin] AdvReac Nausea & Verified 02/20/24 18:53 Vomiting & Diarrhea chlorthalidone AdvReac spiked Verified 02/20/24 18:53 blood pressure ciprofloxacin [From Cipro] AdvReac Nausea & Verified 02/20/24 18:53 Vomiting & Diarrhea clavulanic acid AdvReac Nausea & Verified 02/20/24 18:53 [From Augmentin] Vomiting & Diarrhea epinephrine AdvReac Rapid Verified 02/20/24 18:53 Heart Rate lisinopril AdvReac muscle Verified 02/20/24 18:53 atrophy losartan AdvReac muscle Verified 02/20/24 18:53 atrophy Review of Systems ROS Other: All systems not noted in ROS Statement are negative. <Josefina Hansen - Last Filed: 02/20/24 19:15> ROS Other: All systems not noted in ROS Statement are negative. <Mason Burgos - Last Filed: 02/20/24 21:12> ROS Statement: Those systems with pertinent positive or pertinent negative responses have been documented in the HPI. Past Medical History Past Medical History: Asthma, COPD, CVA/TIA, GERD/Reflux, Hyperlipidemia, Hypertension, Mitral Valve Prolapse (MVP) Additional Past Medical History / Comment(s): recent urinalyis showed hematuria and she had a kidney US which showed a 3.1 cm mass, borderline diabetes, pt getting worked up for possible kishan danlos syndrome History of Any Multi-Drug Resistant Organisms: None Reported Past Surgical History: Section, Tonsillectomy Past Anesthesia/Blood Transfusion Reactions: Previous Problems w/ Anesthesia Additional Past Anesthesia/Blood Transfusion Reaction / Comment(s): difficult to be put to sleep, pt states she could feel and hear everything during her surgery Past Psychological History: No Psychological Hx Reported Smoking Status: Current every day smoker Past Alcohol Use History: Occasional Past Drug Use History: None Reported - Past Family History Father Family Medical History: Chest Pain / Angina, Myocardial Infarction (PR) Mother Additional Family Medical History / Comment(s): from ulcerative colitis <Josefina Hansen - Last Filed: 02/20/24 19:15> General Exam Limitations: no limitations General appearance: alert, in no apparent distress Head exam: Present: atraumatic, normocephalic, normal inspection Eye exam: Present: normal appearance, PERRL, EOMI. Absent: scleral icterus, conjunctival injection, periorbital swelling ENT exam: Present: normal exam, mucous membranes moist Neck exam: Present: normal inspection. Absent: tenderness, meningismus, lymphadenopathy Respiratory exam: Present: normal lung sounds bilaterally. Absent: respiratory distress, wheezes, rales, rhonchi, stridor Cardiovascular Exam: Present: regular rate, normal rhythm, normal heart sounds. Absent: systolic murmur, diastolic murmur, rubs, gallop, clicks GI/Abdominal exam: Present: soft, normal bowel sounds. Absent: distended, tenderness, guarding, rebound, rigid Extremities exam: Present: normal inspection, full ROM, normal capillary refill. Absent: tenderness, pedal edema, joint swelling, calf tenderness Back exam: Present: normal inspection Neurological exam: Present: alert, oriented X3, CN II-XII intact Psychiatric exam: Present: normal affect, normal mood Skin exam: Present: warm, dry, intact, normal color. Absent: rash <Josefina Hansen - Last Filed: 02/20/24 19:15> - General Exam Comments Initial Comments: Visual Physical Exam Vital signs reviewed General: Well-appearing, nontoxic, no acute distress. Head: Normocephalic, atraumatic Eyes: PERRLA, EOMI ENT: Airway patent Chest: Nonlabored breathing Skin: No visual rash, normal skin tone Neuro: Alert and oriented 3 Musculoskeletal: No gross abnormalities (Josefina Hansen) Course Vital Signs 02/20/24 02/20/24 02/20/24 15:23 17:43 19:02 Temperature 97.3 F L Pulse Rate 64 80 84 Respiratory 16 20 18 Rate Blood Pressure 197/108 211/95 227/106 O2 Sat by Pulse 97 98 98 Oximetry 02/20/24 19:28 Temperature Pulse Rate 107 H Respiratory Rate Blood Pressure 224/119 O2 Sat by Pulse 99 Oximetry Medical Decision Making - Lab Data Result diagrams: 02/20/24 15:28 02/20/24 15:28 <Josefina Hansen - Last Filed: 02/20/24 19:15> - Lab Data Result diagrams: 02/20/24 15:28 02/20/24 15:28 <Mason Burgos - Last Filed: 02/20/24 21:12> - Medical Decision Making Was pt. sent in by a medical professional or institution ([facility] Andrade, FAMILY SERVICE WORKER, urgent care, hospital, or [facility]...) When possible be specific @ -[No] Did you speak to anyone other than the patient for history (EMS, parent, family, police, friend...)? What history was obtained from this source @ -[No] Did you review nursing and triage notes (agree or disagree)? Why? @ -[I reviewed and agree with nursing and triage notes] Were old charts reviewed (outside hosp., previous admission, EMS record, old EKG, old radiological studies, urgent care reports/EKG's, [facility] records)? Report findings @ -[No old charts were reviewed] Differential Diagnosis (chest pain, altered mental status, abdominal pain women, abdominal pain men, vaginal bleeding, weakness, fever, dyspnea, syncope, headache, dizziness, GI bleed, back pain, seizure, CVA, palpatations, mental health, musculoskeletal)? @ -Differential Chest Pain: Stable Angina, Unstable Angina, STEMI, NSTEMI Aortic Dissection, Pneumothorax, Musculoskeletal, Esophageal Spasm GERD, Cholecystitis, Pancreatitis, Zoster, this is not meant to be an all-inclusive list. EKG interpreted by me (3pts min.). @ -completed at 1530 9 AM, sinus bradycardia, ventricular of 56, NM interval 161, QTc 390. No acute signs of ischemia. X-rays interpreted by me (1pt min.). @ -[None done] CT interpreted by me (1pt min.). @ -[None done] U/S interpreted by me (1pt. min.). @ -[None done] What testing was considered but not performed or refused? (CT, X-rays, U/S, labs)? Why? @ -[None] What meds were considered but not given or refused? Why? @ -[None] Did you discuss the management of the patient with other professionals (professionals i.e. Z[facility] Andrade, FAMILY SERVICE WORKER, lab, RT, psych nurse, medical social worker, manager construction, teacher, campus safety officer, leather case finisher)? Give summary @ -[No] Was smoking cessation discussed for >3mins.? @ -[No] Was critical care preformed (if so, how long)? @ -[No] Were there social determinants of health that impacted care today? How? (Homelessness, low income, unemployed, alcoholism, drug addiction, tra nsportation, low edu. Level, literacy, decrease access to med. care, nursing home, rehab)? @ -[No] Was there de-escalation of care discussed even if they declined (Discuss DNR or withdrawal of care, Hospice)? DNR status @ -[No] What co-morbidities impacted this encounter? (DM, HTN, Smoking, COPD, CAD, Cance r, CVA, ARF, Chemo, Hep., AIDS, mental health diagnosis, sleep apnea, morbid obesity)? @ -[None] Was patient admitted / discharged? Hospital course, mention meds given and route, prescriptions, significant lab abnormalities, going to OR and other pertinent info. @ -This is a 63-year-old female with complaint of elevated blood pressure. There are no neurological deficits on physical exam. Additionally patient's cardiopulmonary exam no acute findings. Evaluation, patient's blood pressure is still hypertensive at 18:10 was 206/92 HR 72 and O2 100% on RA, 420 mg of IV push hydralazine were ordered. His laboratory results including CBC, CMP, troponin, magnesium and coagulation profile within normal limits. Discussion with patient's nurse, she states that she like only 10 mg of hydralazine relatively ordered 20 due to concern for potentially having side effects. Evaluation, patient's blood pressure is still hypertensive. Signed out to Aubrey VELASQUEZ at shift change pending cephid results and decrease in BP. Undiagnosed new problem with uncertain prognosis? @ -[No] Drug Therapy requiring intensive monitoring for toxicity (Heparin, Nitro, Insulin, Cardizem)? @ -[No] Were any procedures done? @ -[No] Diagnosis/symptom? @ -[default] Acute, or Chronic, or Acute on Chronic? @ -[default] Uncomplicated (without systemic symptoms) or Complicated (systemic symptoms)? @ -[default] Side effects of treatment? @ -[No] Exacerbation, Progression, or Severe Exacerbation? @ -[No] Poses a threat to life or bodily function? How? (Chest pain, USA, PR, pneumonia, PE, COPD, DKA, ARF, appy, cholecystitis, CVA, Diverticulitis, Homicidal, Suicidal, threat to staff... and all critical care pts) @ -[No] (Josefina Hansen) Case signed out to me. 63-year-old female presenting to the ED with complaints of hypertension. No complaints of chest pain or shortness of breath. La boratory studies reviewed which were unremarkable. Chest x-ray unremarkable. Patient at this time refusing to be administered any further antihypertensive and signed out AGAINST MEDICAL ADVICE. (Mason Burgos) - Lab Data Lab Results 02/20/24 02/20/24 02/20/24 Range/Units 15:28 15:28 15:28 WBC 6.9 (3.8-10.6) k/uL RBC 4.91 (3.80-5.40) m/uL Hgb 13.6 (11.4-16.0) gm/dL Hct 43.7 (34.0-46.0) % MCV 89.0 (80.0-100.0) fL MCH 27.6 (25.0-35.0) pg MCHC 31.0 (31.0-37.0) g/dL RDW 14.3 (11.5-15.5) % Plt Count 271 (150-450) k/uL MPV 8.0 Neutrophils % 65 % Lymphocytes % 25 % Monocytes % 7 % Eosinophils % 1 % Basophils % 1 % Neutrophils # 4.5 (1.3-7.7) k/uL Lymphocytes # 1.7 (1.0-4.8) k/uL Monocytes # 0.5 (0-1.0) k/uL Eosinophils # 0.1 (0-0.7) k/uL Basophils # 0.1 (0-0.2) k/uL PT 11.8 (10.0-12.5) sec INR 1.1 (<1.2) APTT 25.6 (22.0-30.0) sec Sodium 141 (137-145) mmol/L Potassium 4.1 (3.5-5.1) mmol/L Chloride 108 H (98-107) mmol/L Carbon Dioxide 30 (22-30) mmol/L Anion Gap 3 mmol/L BUN 16 (7-17) mg/dL Creatinine 0.68 (0.52-1.04) mg/dL Est GFR (CKD-EPI)AfAm >90 (>60 ml/min/1.73 sqM) Est GFR (CKD-EPI)NonAf >90 (>60 ml/min/1.73 sqM) Glucose 118 H (74-99) mg/dL Calcium 9.7 (8.4-10.2) mg/dL Phosphorus 3.9 (2.5-4.5) mg/dL Magnesium 1.9 (1.6-2.3) mg/dL Total Bilirubin 0.5 (0.2-1.3) mg/dL AST 20 (14-36) U/L ALT 13 (4-34) U/L Alkaline Phosphatase 72 (38-126) U/L Troponin I (0.000-0.034) ng/mL Total Protein 7.0 (6.3-8.2) g/dL Albumin 4.1 (3.5-5.0) g/dL Influenza Type A (PCR) (Not Detectd) Influenza Type B (PCR) (Not Detectd) RSV (PCR) (Not Detectd) SARS-CoV-2 (PCR) (Not Detectd) 02/20/24 02/20/24 Range/Units 15:28 18:39 WBC (3.8-10.6) k/uL RBC (3.80-5.40) m/uL Hgb (11.4-16.0) gm/dL Hct (34.0-46.0) % MCV (80.0-100.0) fL MCH (25.0-35.0) pg MCHC (31.0-37.0) g/dL RDW (11.5-15.5) % Plt Count (150-450) k/uL MPV Neutrophils % % Lymphocytes % % Monocytes % % Eosinophils % % Basophils % % Neutrophils # (1.3-7.7) k/uL Lymphocytes # (1.0-4.8) k/uL Monocytes # (0-1.0) k/uL Eosinophils # (0-0.7) k/uL Basophils # (0-0.2) k/uL PT (10.0-12.5) sec INR (<1.2) APTT (22.0-30.0) sec Sodium (137-145) mmol/L Potassium (3.5-5.1) mmol/L Chloride (98-107) mmol/L Carbon Dioxide (22-30) mmol/L Anion Gap mmol/L BUN (7-17) mg/dL Creatinine (0.52-1.04) mg/dL Est GFR (CKD-EPI)AfAm (>60 ml/min/1.73 sqM) Est GFR (CKD-EPI)NonAf (>60 ml/min/1.73 sqM) Glucose (74-99) mg/dL Calcium (8.4-10.2) mg/dL Phosphorus (2.5-4.5) mg/dL Magnesium (1.6-2.3) mg/dL Total Bilirubin (0.2-1.3) mg/dL AST (14-36) U/L ALT (4-34) U/L Alkaline Phosphatase (38-126) U/L Troponin I <0.012 (0.000-0.034) ng/mL Total Protein (6.3-8.2) g/dL Albumin (3.5-5.0) g/dL Influenza Type A (PCR) Not Detected (Not Detectd) Influenza Type B (PCR) Not Detected (Not Detectd) RSV (PCR) Not Detected (Not Detectd) SARS-CoV-2 (PCR) Not Detected (Not Detectd) Disposition <Josefina Hansen - Last Filed: 02/20/24 19:15> <Mason Burgos - Last Filed: 02/20/24 21:12> Clinical Impression: HTN (hypertension) Disposition: LEFT AGAINST MEDICAL ADVICE Condition: Stable Referrals: Yosvany Nguyen DO [Primary Care Provider] - 1-2 days
[2024-02-20] MEDS: hydrALAZINE HCL 20 MG/ML 1 ML VIAL IVP STA ×2 (18:31→21:00)
[2024-02-20] MEDS: IBUPROFEN 800 MG TAB PO STA (18:38)
--- NOTE | 2024-02-20 19:04 | XR ---
EXAMINATION TYPE: XR chest 2V DATE OF EXAM: 02/20/2024 7:00 PM CLINICAL INDICATION:Female, 63 years old with history of JOSLYN. Hypertension; [facility] COMPARISON: Chest radiographs from 01/24/2024 TECHNIQUE: XR chest 2V Frontal and lateral views of the chest. FINDINGS: Lungs/Pleura: There is no evidence of pleural effusion, focal consolidation, or pneumothorax. Pulmonary vascularity: Unremarkable. Heart/mediastinum: Cardiomediastinal silhouette is unremarkable. Musculoskeletal: No acute osseous pathology. IMPRESSION: No acute cardiopulmonary disease/process.
[2024-02-20 19:41] VITALS: RESP 18
[2024-02-20 21:57] VITALS: BP 187/122; PULSE 100; TEMP 97.7
== END 2024-02-20 21:41 | disposition left against medical advice (07) ==
LOC: EC 15:19
DX: I10 Essential (primary) hypertension (principal); R00.1 Bradycardia, unspecified; F17.200 Nicotine dependence, unspecified, uncomplicated; Z53.29 Procedure and treatment not carried out because of patient's decision for other reasons; Z11.52 Encounter for screening for COVID-19; Z86.73 Personal history of transient ischemic attack (TIA), and cerebral infarction without residual deficits; Z91.012 Allergy to eggs; Z88.8 Allergy status to other drugs, medicaments and biological substances; Z88.0 Allergy status to penicillin; Z88.1 Allergy status to other antibiotic agents
CPT/HCPCS: 36415; 93005; 80053; 83735; 84100; 84484; 85025; 85610; 85730; 87636; 71046; 99284; 96374; J0360

== ENCOUNTER → 2024-03-12 | Outpatient (CLI) | payer BC | END | disposition home or self-care (01) | LOC: LABWHC1 09:49 | PROVIDERS: ATTEND Urology | DX: D35.00 Benign neoplasm of unspecified adrenal gland (principal) | CPT/HCPCS: 36415; 82533; 83835 ==